=== PATIENT | male | born 1960 | race Caucasian/White ===

== ENCOUNTER 2021-05-20 23:17 | Emergency (ER) | payer MEDICARE, OTHER ==
[~2021-05-20] VITALS: Ht 182.9 cm; Wt 78.0 kg
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
--- NOTE | 2021-05-20 23:34 | NUR ---
PER RA, PT WAS TOLD TO SEE A STONE CUTTER. ADDRESS FOR PLACE: [address] [place] [address]
--- NOTE | 2021-05-21 00:02 | NUR ---
BROUGHT TO CT
--- NOTE | 2021-05-21 01:34 | NUR ---
PT RESTING COMFORTABLY. VSS.
--- NOTE | 2021-05-21 02:43 | NUR ---
PT AWARE CT SCANS ARE NEGATIVE. AWARE HE WILL SPEAK TO A ONLINE JOURNALIST IN THE MORNING.
[2021-05-21] MEDS ORDERED: ACETAMINOPHEN ES 500 MG TABLET ONE (03:01)
[2021-05-21] MEDS: ACETAMINOPHEN ES 500 MG TABLET PO ONE (03:26)
--- NOTE | 2021-05-21 06:15 | NUR ---
PT AWAKE IN BED, VSS.
--- NOTE | 2021-05-21 08:16 | NUR ---
THE PATIENT SLEEPING. THE PATIENT RESPONSIVE TO VERBAL STIMULI. RESPIRATION REGULAR AND UNLABORED. IN NO APPARENT DISTRESS. WILL CONTINUE TO MONITOR THE PATIENT.
[2021-05-21] MEDS: ACETAMINOPHEN 325 MG TABLET PO ONE (09:39)
[2021-05-21] MEDS ORDERED: ACETAMINOPHEN 325 MG TABLET ONE (09:40)
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
--- NOTE | 2021-05-21 10:29 | NUR ---
Patient discharged to home in stable condition. Written and verbal after care instructions given. Patient verbalizes understanding of instruction.
[2021-05-21 10:30] VITALS: BP 126/72
== END 2021-05-21 10:30 | disposition home or self-care (01) ==
LOC: ER 23:20
DX: S33.5XXA Sprain of ligaments of lumbar spine, initial encounter (principal); S00.03XA Contusion of scalp, initial encounter; F10.129 Alcohol abuse with intoxication, unspecified; Z88.6 Allergy status to analgesic agent; Y08.89XA Assault by other specified means, initial encounter; Y93.89 Activity, other specified; Y92.89 Other specified places as the place of occurrence of the external cause; Y99.8 Other external cause status; Y90.9 Presence of alcohol in blood, level not specified
CPT/HCPCS: 70450-TC; 72125-TC; 72131-TC